=== PATIENT | female | born 1955 | race American Indian/Alaskan Native ===

== ENCOUNTER 2016-09-02 07:59 | Emergency (ER) | payer SELFPAY ==
--- NOTE | 2016-09-02 10:31 | XRay Report ---
LEFT HIP THREE VIEWS: 09/02/16 07:59:00 CLINICAL: Pain. FINDINGS: No fracture or dislocation. Mild osteoarthritis with superior acetabular eburnation. Mild superior and lateral joint space narrowing. Similar changes in the right hip. The pelvic bones are intact. Bilateral SI joint sclerosis. IMPRESSION: Mild osteoarthritis of the hips. Bilateral sacroiliitis.
[2016-09-02 11:09] VITALS: BP 121/69
[2016-09-02] MEDS ORDERED: DILAUDID IM ONE (11:32)
[2016-09-02] MEDS ORDERED: ZOFRAN IM ONE (11:32)
--- NOTE | 2016-09-02 11:41 | Emergency Department Report ---
HPI - General Chief Complaint: Extremity Problem,Nontraumatic Time Seen by Provider: 09/02/16 11:22 - HPI HPI: Room 8 The patient is a 61-year-old female presenting with a chief complaint left hip pain. The patient states for the past 3 days she has had pain in her left hip radiating down to her knee. The patient denies any preceding trauma. The patient states there is no pain when she is sitting still however the pain comes on with movement. Patient denies any history of fever. Patient gives her pain a score of 13/10. The patient lives with her daughter. The patient last had her INR checked 2 days ago (08/31/2016) and was told it was normal Location: Left hip Duration: 3 days Quality: Pain Severity: 13/10 Modifying factors: [see above] Context: [see above] Mode of transportation: [not driving] ED Past Medical Hx - Past Medical History Previous Medical History?: Yes Hx Hypertension: Yes Hx Seizures: Yes Additional medical history: Cyst on skull - Surgical History Past Surgical History?: Yes Additional Surgical History: tubal ligation, Brain surgeryand had a cyst removed from brain - Family History Family history: no significant - Social History Smoking Status: Never Smoker Substance Use Type: None - Medications Home Medications: Home Medications Medication Instructions Recorded Confirmed Last Taken Type Nortriptyline [Pamelor] 50 mg PO BID #60 capsule 04/05/14 07/03/14 Unknown Rx Phenytoin [Dilantin] 100 mg PO TID #90 capsule 04/05/14 07/03/14 Unknown Rx Hydrochlorothiazide [Hctz] 25 mg PO QDAY #10 tablet 07/04/14 Unknown Rx Nortriptyline [Pamelor] 50 mg PO BID #20 capsule 07/04/14 Unknown Rx Phenytoin [Dilantin] 100 mg PO Q8HR #30 capsule 07/04/14 Unknown Rx Acetaminophen/Codeine [Tylenol #3] 1 tab PO Q6H PRN #14 tab 02/27/15 Unknown Rx Hydrochlorothiazide [HCTZ] 25 mg PO QDAY #90 tablet 02/27/15 Unknown Rx Ibuprofen [Motrin] 800 mg PO Q8HR PRN #30 tablet 02/27/15 Unknown Rx Naproxen [Naprosyn] 500 mg PO BID PRN #20 tablet 08/14/15 Unknown Rx Cyclobenzaprine [Flexeril] 10 mg PO TID PRN #14 tablet 09/02/16 Unknown Rx oxyCODONE /ACETAMINOPHEN [Percocet 1 - 2 tab PO Q6HR PRN #14 tablet 09/02/16 Unknown Rx 5/325] ED Review of Systems ROS: Stated complaint: LEFT HIP PAIN Other details as noted in HPI Comment: All other systems reviewed and negative Constitutional: denies: chills, fever Eyes: denies: eye pain, eye discharge, vision change ENT: denies: ear pain, throat pain Respiratory: denies: cough, shortness of breath, wheezing Cardiovascular: denies: chest pain, palpitations Endocrine: no symptoms reported Gastrointestinal: denies: abdominal pain, nausea, diarrhea Genitourinary: denies: urgency, dysuria, discharge Musculoskeletal: arthralgia, myalgia Skin: denies: rash, lesions Neurological: denies: headache, weakness, paresthesias Psychiatric: denies: anxiety, depression Hematological/Lymphatic: denies: easy bleeding, easy bruising Physical Exam - Physical Exam Vital Signs: Vital Signs 09/02/16 09/02/16 09/02/16 08:04 11:08 11:09 Temperature 98.3 F 97.9 F Pulse Rate 89 88 Respiratory 18 18 Rate Blood Pressure 158/89 Blood Pressure 121/69 [Left] O2 Sat by Pulse 99 98 98 Oximetry Physical Exam: GENERAL: The patient is well-developed well-nourished female lying on stretcher not appearing to be in acute distress. [] HEENT: Normocephalic. Atraumatic. Extraocular motions are intact. Patient has moist mucous membranes. NECK: Supple. Trachea midline CHEST/LUNGS: There is no respiratory distress noted. HEART/CARDIOVASCULAR: Regular. There is no tachycardia. 2+ DP left foot SKIN: There is no rash. There is no edema. There is no diaphoresis. NEURO: The patient is awake, alert, and oriented. The patient is cooperative. The patient has normal speech MUSCULOSKELETAL: There is no obvious deformity of left lower extremity. There is pain in the left lower extremity with leg raise or any movement. There is no evidence of acute injury. ED Course Vital Signs 09/02/16 09/02/16 09/02/16 08:04 11:08 11:09 Temperature 98.3 F 97.9 F Pulse Rate 89 88 Respiratory 18 18 Rate Blood Pressure 158/89 Blood Pressure 121/69 [Left] O2 Sat by Pulse 99 98 98 Oximetry ED Medical Decision Making - Lab Data Result diagrams: 09/02/16 11:40 Laboratory Tests 09/02/16 09/02/16 11:40 11:40 WBC 4.5 RBC 3.90 Hgb 11.2 Hct 34.0 MCV 87 MCH 29 MCHC 33 RDW 13.8 Plt Count 281 Lymph % (Auto) 34.5 [place] % (Auto) 7.5 H Eos % (Auto) 3.1 Baso % (Auto) 0.6 Lymph # 1.5 [place] # 0.3 Eos # 0.1 Baso # 0.0 Seg Neutrophils % 54.3 Seg Neutrophils # 2.4 PT 37.3 H INR 3.74 H - Radiology Data Radiology results: report reviewed (left hip x-ray), image reviewed (left hip x- ray) interpreted by me: Left hip x-ray-no acute fracture or dislocation Left hip x-ray (read by radiologist)-mild osteoarthritis of the hips. Bilateral sacroiliitis. - Differential Diagnosis hip fracture, hip dislocation, hemarthrosis, sciatica Critical care attestation.: If time is entered above; I have spent that time in minutes in the direct care of this critically ill patient, excluding procedure time. ED Disposition Clinical Impression: Osteoarthritis of left hip, Sciatica Disposition: DISCHARGED TO HOME OR SELFCARE Is pt being admited?: No Does the pt Need Aspirin: No Condition: Stable Instructions: Sciatica (ED), Arthralgia (ED) Additional Instructions: Return to the emergency department immediately should you develop worsening symptoms, fever, inability to tolerate food or liquid or any other concerns. Prescriptions: Cyclobenzaprine [Flexeril] 10 mg PO TID PRN #14 tablet PRN Reason: Muscle Spasm oxyCODONE /ACETAMINOPHEN [Percocet 5/325] 1 - 2 tab PO Q6HR PRN #14 tablet PRN Reason: Pain Referrals: PRIMARY CARE, [Primary Care Provider] - 3-5 Days RAGINI WALKER MD [Staff Physician] - [facility] (Dr. Walker is an orthopedic surgeon. Please follow up with him for further evaluation) Time of Disposition: 12:36
[2016-09-02 12:27] LABS: Basophils % (Auto) 0.6 % (0.0-1.8); Eosinophils % (Auto) 3.1 % (0.0-4.3); Hemoglobin 11.2 gm/dl (10.1-14.3); Mean Corpuscular HGB Conc 33 % (30-34); Mean Corpuscular Hemoglobin 29 pg (28-32); Mean Corpuscular Volume 87 fl (79-97); Platelet Count 281 K/mm3 (140-440); Red Cell Distribution Width 13.8 % (13.2-15.2); White Blood Count 4.5 K/mm3 (4.5-11.0)
[2016-09-02 12:34] LABS: INR 3.74 (0.87-1.13)
[2016-09-02 12:51] LABS: Partial Thromboplastin Time 86.8 Sec. (24.2-36.6)
== END 2016-09-02 13:00 | disposition home or self-care (01) ==
LOC: ED 07:59
DX: M16.12 Unilateral primary osteoarthritis, left hip (principal); M54.30 Sciatica, unspecified side; I10 Essential (primary) hypertension
CPT/HCPCS: 36415; 73502; 85025; 85610; 85730; 96372; 99284; J1170; J2405

== ENCOUNTER 2017-02-13 11:28 | Emergency (ER) | payer MEDICAID ==
[2017-02-13 11:49] VITALS: BP 149/99
[2017-02-13 12:33] LABS: Basophils % (Auto) 0.7 % (0.0-1.8); Hematocrit 35.4 % (30.3-42.9); Hemoglobin 11.5 gm/dl (10.1-14.3); Mean Corpuscular HGB Conc 32 % (30-34); Mean Corpuscular Hemoglobin 29 pg (28-32); Mean Corpuscular Volume 88 fl (79-97); Platelet Count 275 K/mm3 (140-440); Red Blood Count 4.02 M/mm3 (3.65-5.03); Red Cell Distribution Width 14.8 % (13.2-15.2); White Blood Count 4.3 K/mm3 (4.5-11.0)
[2017-02-13 12:41] LABS: INR 2.26 (0.87-1.13)
[2017-02-13 12:42] LABS: Partial Thromboplastin Time 45.8 Sec. (24.2-36.6)
[2017-02-13 12:47] LABS: Anion Gap 17 mmol/L; BUN/Creatinine Ratio 21.25; Blood Urea Nitrogen 17 mg/dL (7-17); Calcium 8.8 mg/dL (8.4-10.2); Carbon Dioxide 27 mmol/L (22-30); Chloride 99.7 mmol/L (98-107); Glucose 114 mg/dL (65-100); Potassium 3.9 mmol/L (3.6-5.0); Sodium 140 mmol/L (137-145)
--- NOTE | 2017-02-13 13:13 | Cat Scan Report ---
CT scan of head without IV contrast: History: Neurodeficit. Findings: Patient status post right posterior parietal craniotomy. Ill-defined area of low-attenuation in the white matter of the right posterior parietal cortex is probably postop changes. No previous studies are present available for comparison. No distinct mass. No evidence of acute ischemia, hemorrhage or extra-axial fluid collection. Normal brainstem and cerebellum. Impression: Impression: No acute intracranial abnormality.
== END 2017-02-13 20:30 | disposition left against medical advice (07) ==
LOC: ED 11:28
DX: R51 Headache (principal); Z53.21 Procedure and treatment not carried out due to patient leaving prior to being seen by health care provider
CPT/HCPCS: 36415; 70450; 80048; 84484; 85025; 85610; 85670; 85730

== ENCOUNTER 2021-03-25 09:32 | Emergency (ER) | payer MEDICARE ==
--- NOTE | 2021-03-25 10:05 | Event Note ---
ED Screening Note Date of service: 03/25/21 Time: 10:00 ED Screening Note: 65-year-old obese -[place]arshall[place] female who is currently on Coumadin presents to the emergency room complaining of severe back pain 10 out of 10 and heavy vaginal bleeding postmenopausal. This initial assessment/diagnostic orders/clinical plan/treatment(s) is/are subject to change based on patients health status, clinical progression and re- assessment by fellow clinical providers in the ED. Further treatment and workup at subsequent clinical providers discretion. Patient/guardian urged not to elope from the ED as their condition may be serious if not clinically assessed and managed. Initial orders include:
--- NOTE | 2021-03-25 10:28 | Emergency Department Report ---
ED General Adult HPI - General Chief complaint: Medical Clearance Stated complaint: LOWER BACK PAIN,BLOOD THINNER MEDS/VAGINAL BLEED Time Seen by Provider: 03/25/21 09:52 Source: patient Mode of arrival: Ambulatory Limitations: No Limitations - History of Present Illness Initial comments: 65-year-old obese -[place]ian female who is currently on Coumadin presents to the emergency room complaining of severe back pain 10 out of 10 and heavy vaginal bleeding postmenopausal. Patient reports she went to [facility] and they did nothing we will give her some pills. Patient reports she has not had back x-ray. Patient denies any pelvic pain or pressure no dysuria. Denies any dizziness no nausea no vomiting. She states she is on Coumadin after having brain surgery. She reports her primary care provider is Dr. Larry Arcos and has been trying to get an appointment or call back from this clinic. Patient denies any fever chills no chest pain. Onset/Timin -: week(s) (Postmenopausal bleeding) Severity scale (0 -10): 10 (back pain) Quality: aching Consistency: constant Improves with: none Worsens with: none Associated Symptoms: denies other symptoms Treatments Prior to Arrival: none - Related Data Previous Rx's Medication Instructions Recorded Last Taken Type Nortriptyline(Nf) [Pamelor(Nf)] 50 mg PO BID #60 capsule 04/05/14 Unknown Rx Phenytoin [Dilantin] 100 mg PO TID #90 capsule 04/05/14 Unknown Rx Nortriptyline(Nf) [Pamelor(Nf)] 50 mg PO BID #20 capsule 07/04/14 Unknown Rx Phenytoin [Dilantin] 100 mg PO Q8HR #30 capsule 07/04/14 Unknown Rx hydroCHLOROthiazide [Hctz] 25 mg PO QDAY #10 tablet 07/04/14 Unknown Rx Acetaminophen/Codeine [Tylenol #3] 1 tab PO Q6H PRN #14 tab 02/27/15 Unknown Rx Ibuprofen [Motrin] 800 mg PO Q8HR PRN #30 tablet 02/27/15 Unknown Rx hydroCHLOROthiazide [HCTZ] 25 mg PO QDAY #90 tablet 02/27/15 Unknown Rx Naproxen [Naprosyn] 500 mg PO BID PRN #20 tablet 08/14/15 Unknown Rx Cyclobenzaprine [Flexeril] 10 mg PO TID PRN #14 tablet 09/02/16 Unknown Rx oxyCODONE /ACETAMINOPHEN [Percocet 1 - 2 tab PO Q6HR PRN #14 tablet 09/02/16 Unknown Rx 5/325] Acetaminophen [Acetaminophen ER 650 mg PO Q8HR PRN #30 tablet.er 03/25/21 Unknown Rx TAB] Allergies Allergy/AdvReac Type Severity Reaction Status Date / Time butorphanol tartrate Allergy Shortness Verified 05/04/13 08:22 [From Stadol] of Breath tramadol Allergy Shortness Verified 05/04/13 08:22 of Breath ED Review of Systems ROS: Stated complaint: LOWER BACK PAIN,BLOOD THINNER MEDS/VAGINAL BLEED Other details as noted in HPI Comment: All other systems reviewed and negative ED Past Medical Hx - Past Medical History Previous Medical History?: Yes Hx Hypertension: Yes Hx Diabetes: Yes Hx Seizures: Yes Additional medical history: Cyst on skull, Anemia - Surgical History Past Surgical History?: Yes Additional Surgical History: tubal ligation, Brain surgeryand had a cyst removed from brain - Social History Smoking Status: Never Smoker Substance Use Type: Prescribed - Medications Home Medications: Home Medications Medication Instructions Recorded Confirmed Last Taken Type Nortriptyline(Nf) [Pamelor(Nf)] 50 mg PO BID #60 capsule 04/05/14 07/03/14 Unknown Rx Phenytoin [Dilantin] 100 mg PO TID #90 capsule 04/05/14 07/03/14 Unknown Rx Nortriptyline(Nf) [Pamelor(Nf)] 50 mg PO BID #20 capsule 07/04/14 Unknown Rx Phenytoin [Dilantin] 100 mg PO Q8HR #30 capsule 07/04/14 Unknown Rx hydroCHLOROthiazide [Hctz] 25 mg PO QDAY #10 tablet 07/04/14 Unknown Rx Acetaminophen/Codeine [Tylenol #3] 1 tab PO Q6H PRN #14 tab 02/27/15 Unknown Rx Ibuprofen [Motrin] 800 mg PO Q8HR PRN #30 tablet 02/27/15 Unknown Rx hydroCHLOROthiazide [HCTZ] 25 mg PO QDAY #90 tablet 02/27/15 Unknown Rx Naproxen [Naprosyn] 500 mg PO BID PRN #20 tablet 08/14/15 Unknown Rx Cyclobenzaprine [Flexeril] 10 mg PO TID PRN #14 tablet 09/02/16 Unknown Rx oxyCODONE /ACETAMINOPHEN [Percocet 1 - 2 tab PO Q6HR PRN #14 tablet 09/02/16 Unknown Rx 5/325] Acetaminophen [Acetaminophen ER 650 mg PO Q8HR PRN #30 tablet.er 03/25/21 Unknown Rx TAB] ED Physical Exam - General Limitations: No Limitations General appearance: alert, in no apparent distress - Head Head exam: Present: atraumatic, normocephalic - Eye Eye exam: Present: normal appearance - ENT ENT exam: Present: mucous membranes moist - Neck Neck exam: Present: normal inspection - Respiratory Respiratory exam: Present: normal lung sounds bilaterally. Absent: respiratory distress - Cardiovascular Cardiovascular Exam: Present: regular rate, normal rhythm. Absent: systolic mu rmur, diastolic murmur, rubs, gallop - GI/Abdominal GI/Abdominal exam: Present: soft, normal bowel sounds - Extremities Exam Extremities exam: Present: normal inspection - Back Exam Back exam: Present: normal inspection, full ROM, tenderness - Neurological Exam Neurological exam: Present: alert, oriented X3 - Psychiatric Psychiatric exam: Present: normal affect, normal mood - Skin Skin exam: Present: warm, dry, intact, normal color. Absent: rash ED Course Vital Signs 03/25/21 03/25/21 09:48 13:17 Temperature 98.2 F 97.8 F Pulse Rate 90 86 Respiratory 20 18 Rate Blood Pressure 144/71 Blood Pressure 140/70 [Right] O2 Sat by Pulse 99 99 Oximetry ED Medical Decision Making - Lab Data Result diagrams: 03/25/21 10:58 03/25/21 10:58 Laboratory Results - last 72 hr 03/25/21 03/25/21 03/25/21 10:58 10:58 10:58 WBC 7.2 RBC 2.97 L Hgb 8.3 L Hct 25.9 L MCV 87 MCH 28 MCHC 32 RDW 15.0 Plt Count 378 Lymph % (Auto) 25.6 [place] % (Auto) 6.0 Eos % (Auto) 1.7 Baso % (Auto) 0.4 Lymph # (Auto) 1.8 [place] # (Auto) 0.4 Eos # (Auto) 0.1 Baso # (Auto) 0.0 Seg Neutrophils % 66.3 Seg Neutrophils # 4.8 PT 24.1 H INR 1.96 H APTT 45.6 H Sodium 139 Potassium 3.0 L Chloride 96.9 L Carbon Dioxide 28 Anion Gap 17 BUN 15 Creatinine 1.0 Estimated GFR > 60 BUN/Creatinine Ratio 15 Glucose 112 H Calcium 8.9 Total Bilirubin 0.20 AST 18 ALT 16 Alkaline Phosphatase 92 Total Protein 8.4 H Albumin 3.9 Albumin/Globulin Ratio 0.9 - Radiology Data Radiology results: report reviewed [facility] [address] [place] [address] XRay Report Signed Patient: NAYELY JOHNS MR#: [id number] : 1955 Acct:[id number] Age/Sex: 65 / F ADM Date: 03/25/21 Loc: ED Attending Dr: Ordering Physician: GREYSON AGUILERA Date of Service: 03/25/21 Procedure(s): XR spine lumbosacral 2-3V Accession Number(s): [id number] cc: GREYSON AGUILERA Fluoro Time In Minutes: LUMBAR SPINE 3 VIEWS INDICATION / CLINICAL INFORMATION: Severe back pain. COMPARISON: None available. FINDINGS: VERTEBRAE: No acute fracture. Degenerative anterolisthesis of L4 on L5. DISC SPACES / FACET JOINTS:Scattered degenerative disc disease and moderate to severe degenerative facet disease of lower lumbar spine. PARASPINAL SOFT TISSUES:No significant abnormality. ADDITIONAL FINDINGS: None. Signer Name: Navid Gordon DO Signed: 03/25/2021 10:36 AM Workstation Name: [id number] Transcribed By: TIMOTHY Dictated By: NAVID GORDON DO Electronically Authenticated By: NAVID GORDON DO Signed Date/Time: 03/25/21 1036 DD/ 1035 TD/TT: - Medical Decision Making 65-year-old obese -[place]ian female who is currently on Coumadin presents to the emergency room complaining of severe back pain 10 out of 10 and heavy vaginal bleeding postmenopausal. Patient reports she went to [facility] and they did nothing we will give her some pills. Patient reports she has not had back x-ray. Patient denies any pelvic pain or pressure no dysuria. Denies any dizziness no nausea no vomiting. She states she is on Coumadin after having brain surgery. She reports her primary care provider is Dr. Larry Arcos and has been trying to get an appointment or call back from this clinic. Patient denies any fever chills no chest pain. CBC CMP type and screen PT PTT x-ray of lumbar sacral and ultrasound pelvic complete and urinalysis Discussed with patient the importance of being followed by [facility] as she needs an endometrial biopsy to rule out or in uterine cancer. Discussed with patient that I will refer her to several [facility] providers as she has been having difficulty getting in touch with her primary care provider. I discussed with patient that her x-ray of her lumbar spine shows she has moderate to severe degenerative disc disease and she can take Tylenol for her pain. Patient is currently on Coumadin and will not recommend ibuprofen or naproxen. Critical care attestation.: If time is entered above; I have spent that time in minutes in the direct care of this critically ill patient, excluding procedure time. ED Disposition Clinical Impression: Postmenopausal vaginal bleeding, Lumbar pain, Degenerative disc disease, lumbar Disposition: 01 HOME / SELF CARE / HOMELESS Is pt being admited?: No Does the pt Need Aspirin: No Condition: Stable Instructions: Dysfunctional Uterine Bleeding Additional Instructions: Please follow-up with an [facility] I have listed below as you need a endometrial biopsy to rule out or in cancer. This is very important that she be followed up in the next week or 2. You have degenerative disc disease which is osteo arthritis of your back. I recommend Tylenol for your back for pain. You cannot take ibuprofen or naproxen as you are currently on Coumadin and you are allergic to tramadol. I recommended she follow-up with a back specialist. Prescriptions: Acetaminophen [Acetaminophen ER TAB] 650 mg PO Q8HR PRN #30 tablet.er PRN Reason: Pain Referrals: [facility] [Provider Group] - 3-5 Days [facility] [Provider Group] - 3-5 Days [facility] [Provider Group] - 3-5 Days [facility], [Provider Group] - 3-5 Days [facility] [Provider Group] - 3-5 Days Time of Disposition: 12:48
--- NOTE | 2021-03-25 10:40 | XRay Report ---
LUMBAR SPINE 3 VIEWS INDICATION / CLINICAL INFORMATION: Severe back pain. COMPARISON: None available. FINDINGS: VERTEBRAE: No acute fracture. Degenerative anterolisthesis of L4 on L5. DISC SPACES / FACET JOINTS:Scattered degenerative disc disease and moderate to severe degenerative fa cet disease of lower lumbar spine. PARASPINAL SOFT TISSUES:No significant abnormality. ADDITIONAL FINDINGS: None. Signer Name: Navid Alicea DO Signed: 03/25/2021 10:36 AM Workstation Name: [id number]
--- NOTE | 2021-03-25 11:06 | Ultrasound Report ---
ULTRASOUND PELVIS INDICATION / CLINICAL INFORMATION: Heavy postmenopausal bleeding. TECHNIQUE: Transabdominal. Duplex Color Doppler used: Yes. COMPARISON: None available FINDINGS: UTERUS: - Appearance: Not seen - Size (cm): Not seen - Endometrial Complex (if present): Not seen.. Thickness in cm (if measured) = not seen - Mass or cyst: Not seen. - Additional findings: Not seen. RIGHT ADNEXA: Not seen. LEFT ADNEXA: Not seen. URINARY BLADDER: Not seen. IMPRESSION: 1. Unable to visualize pelvic structures due to patient's body habitus and empty bladder. Patient ref used transvaginal probe. Signer Name: Navid Alicea DO Signed: 03/25/2021 11:02 AM Workstation Name: [id number]
[2021-03-25 11:17] LABS: Basophils % (Auto) 0.4 % (0.0-1.8); Eosinophils # (Auto) 0.1 K/mm3 (0.0-0.4); Eosinophils % (Auto) 1.7 % (0.0-4.3); Hematocrit 25.9 % (30.3-42.9); Hemoglobin 8.3 gm/dl (10.1-14.3); Lymphocytes # (Auto) 1.8 K/mm3 (1.2-5.4); Lymphocytes % (Auto) 25.6 % (13.4-35.0); Mean Corpuscular HGB Conc 32 % (30-34); Mean Corpuscular Volume 87 fl (79-97); Monocytes # (Auto) 0.4 K/mm3 (0.0-0.8); Platelet Count 378 K/mm3 (140-440); Red Blood Count 2.97 M/mm3 (3.65-5.03)
[2021-03-25 11:41] LABS: Alanine Aminotransferase 16 units/L (7-56); Albumin 3.9 g/dL (3.9-5); BUN/Creatinine Ratio 15; Blood Urea Nitrogen 15 mg/dL (7-17); Calcium 8.9 mg/dL (8.4-10.2); Hemolysis Index 2
[2021-03-25 12:05] LABS: INR 1.96 (0.87-1.13); Partial Thromboplastin Time 45.6 Sec. (24.2-36.6)
[2021-03-25 13:20] VITALS: BP 144/71
== END 2021-03-25 13:20 | disposition home or self-care (01) ==
LOC: ED 09:32
DX: N95.0 Postmenopausal bleeding (principal); M54.50 Low back pain, unspecified; M51.36 Other intervertebral disc degeneration, lumbar region; I10 Essential (primary) hypertension; E11.8 Type 2 diabetes mellitus with unspecified complications; R56.9 Unspecified convulsions; Z88.5 Allergy status to narcotic agent
CPT/HCPCS: 36415; 72100; 76856; 80053; 85025; 85610; 85730; 86850; 86900; 86901; 99284